=== PATIENT | female | born 1935 | race Caucasian/White ===

== ENCOUNTER 2024-06-14 15:00 | Observation (INO) ==
[2024-06-14] MEDS ORDERED: IOPAMIDOL 100 ML BOTTLE IV ONE (15:01)
[2024-06-14 16:12] LABS: Basophils # (Auto) 0.02 K/mcL (0.00-0.30); Basophils % (Auto) 0.3 % (0.0-2.0); Eosinophils # (Auto) 0.02 K/mcL (0.00-0.70); Eosinophils % (Auto) 0.3 % (0.0-7.0); Hematocrit 38.7 % (34.1-44.9); Hemoglobin 12.2 g/dL (11.2-15.7); Lymphocytes % (Auto) 29.6 % (15.5-49.0); Mean Cell Volume 101.3 fL (80.0-100.0); Mean Corpuscular HGB Conc 31.5 g/dL (31.0-36.0); Mean Platelet Volume 12.7 fL (8.8-12.5); Monocytes # (Auto) 0.51 K/mcL (0.10-0.90); Monocytes % (Auto) 7.2 % (1.0-12.0); Neutrophils % (Auto) 62.5 % (38.0-78.0); Platelet Count 129 K/mcL (140-440); RBC 3.82 M/mcL (3.59-5.38); Red Cell Distribution Width 12.6 % (11.5-14.5); WBC 7.1 K/mcL (4.5-11.0)
[2024-06-14 16:15] LABS: ALT/SGPT 9 U/L (<40); AST/SGOT 30 U/L (<32); Albumin 4.2 gm/dL (3.2-5.2); Albumin/Globulin Ratio 1.3 (1.0-2.3); Alkaline Phosphatase 59 U/L (39-117); Bilirubin,Total 0.3 mg/dL (0.1-1.0); Blood Urea Nitrogen 11 mg/dL (8-23); Calcium 9.8 mg/dL (8.6-10.4); Carbon Dioxide 26 mmol/L (22-30); Chloride 100 mmol/L (96-108); Globulin 3.2 gm/dL (2.2-3.7); Glomerular Filtration Rate 78; Glucose 98 mg/dL (70-105); Potassium 3.7 mmol/L (3.3-5.1); Sodium 138 mmol/L (133-145)
[2024-06-14 16:44] LABS: INR 0.9 (0.9-1.1); Prothrombin Time 12.7 sec (11.9-14.5)
[2024-06-14 16:45] LABS: Appearance,Urine Clear (Clear); Bacteria,Urine 0 /hpf (0); Bilirubin,Urine Negative (Negative); Color,Urine Yellow; Glucose,Urine (UA) Negative (Negative); Ketones,Urine Negative (Negative); Leukocyte Esterase,Urine Negative /uL (Negative); Mucus,Urine Mod /hpf; Nitrate,Urine Negative (Negative); PH,Urine 5.5 (5.0-9.0); Protein,Urine 30 mg/dL (Negative); Urine Blood Negative ery/mcL (Negative); Urine Hyaline Cast 18 /lph (0-2); Urine RBC 0 /hpf (0-3); Urine Squamous Epithelial Cell 1 /hpf (0-4); Urine WBC 2 /hpf (0-4); Urobilinogen,Urine Normal
[2024-06-14] MEDS: ASPIRIN 325 MG ENTERIC COATED TABLET PO ONE (18:19)
[2024-06-14] MEDS: HYDROCODONE/APAP 7.5/325MG TABLET PO ONE (18:35)
[2024-06-14] MEDS: ASPIRIN 81 MG TAB.CHEW CHEWED ONE ×2 (18:36)
[2024-06-14] MEDS: ATORVASTATIN 40 MG TABLET PO ONE (18:43)
[2024-06-14] MEDS ORDERED: ACETAMINOPHEN 160 MG/5 ML ORAL.SOL PO PRN (20:16)
[2024-06-14] MEDS ORDERED: POTASSIUM CHLORIDE 20 MEQ TABLET PO PRN ×2 (20:16)
[2024-06-14] MEDS ORDERED: POLYETHYLENE GLYCOL 3350 17 GM PACKET PO PRN (20:16)
[2024-06-14] MEDS ORDERED: SENNOSIDES 1 TABLET PO PRN (20:16)
[2024-06-14] MEDS ORDERED: POTASSIUM CHLORIDE 40 MEQ in DEXTROSE 5% IN WATER 500 ML IV PRN (20:16)
[2024-06-14] MEDS ORDERED: MAGNESIUM SULFATE 2 GM/50 ML BAG IV PRN (20:16)
[2024-06-14] MEDS ORDERED: ONDANSETRON 4 MG/2 ML VIAL IV PRN (20:16)
[2024-06-14] MEDS ORDERED: METOCLOPRAMIDE 10 MG/2 ML VIAL IV PRN (20:16)
[2024-06-14] MEDS ORDERED: IPRATROPIUM/ALBUTEROL 3 ML AMPUL.NEB NEB PRN (20:16)
[2024-06-14 20:54] LABS: HDL Cholesterol 80 mg/dL (>40); LDL Cholesterol,Calculated 100 mg/dL (<100); Non-HDL Cholesterol 133 mg/dL (<130); Triglycerides 168 mg/dL (<150)
[2024-06-14] MEDS: 0.9 % SODIUM CHLORIDE 1,000 ML IV ONE (21:34)
[2024-06-14] MEDS: ATORVASTATIN 40 MG TABLET PO SCH (21:34)
[2024-06-14] MEDS: DOCUSATE SODIUM 100 MG CAPSULE PO SCH (21:34)
[2024-06-14] MEDS ORDERED: hydrALAZINE 20 MG/ML VIAL IV PRN (21:43)
[2024-06-14] MEDS: METHOCARBAMOL 750 MG TABLET PO SCH (22:04)
[2024-06-14] MEDS: METHOCARBAMOL 750 MG TABLET PO ONE (22:35)
[2024-06-15 06:10] LABS: ALT/SGPT 8 U/L (<40); AST/SGOT 22 U/L (<32); Albumin 3.7 gm/dL (3.2-5.2); Albumin/Globulin Ratio 1.5 (1.0-2.3); Alkaline Phosphatase 49 U/L (39-117); Bilirubin,Direct < 0.2 mg/dL (0-0.3); Bilirubin,Total 0.4 mg/dL (0.1-1.0); Blood Urea Nitrogen 9 mg/dL (8-23); Calcium 9.4 mg/dL (8.6-10.4); Carbon Dioxide 28 mmol/L (22-30); Chloride 103 mmol/L (96-108); Globulin 2.5 gm/dL (2.2-3.7); Glomerular Filtration Rate 82; Glucose 95 mg/dL (70-105); Lactate Dehydrogenase 168 U/L (135-225); Phosphorous 2.9 mg/dL (2.5-4.5); Potassium 3.8 mmol/L (3.3-5.1); Sodium 140 mmol/L (133-145); Triglycerides 69 mg/dL (<150); Uric Acid 3.6 mg/dL (2.5-8.0)
[2024-06-15] MEDS: ASPIRIN 81 MG TAB.CHEW CHEWED SCH (08:07)
[2024-06-15] MEDS: ENOXAPARIN 40 MG/0.4 ML SYRINGE SQ SCH (08:07)
[2024-06-15] MEDS: amLODIPine 5 MG TABLET PO SCH (08:07)
[2024-06-15] MEDS: CLOPIDOGREL 75 MG TABLET PO SCH (08:07)
[2024-06-15] MEDS: LOSARTAN 50 MG TABLET PO SCH ×2 (08:08→09:36)
[2024-06-15] MEDS: LOSARTAN 50 MG TABLET PO ONE (08:45)
[2024-06-15] MEDS: BUPRENORPHINE TOPICAL SCH (12:22)
[2024-06-15] MEDS: LIDOCAINE 4% TOP PATCH TOPICAL SCH (12:41)
[2024-06-15] MEDS: hydrALAZINE 20 MG/ML VIAL IV PRN (17:46)
[2024-06-15] MEDS: HYDROcodone/APAP 5/325MG TABLET PO PRN (20:16)
[2024-06-16] MEDS ORDERED: amLODIPine 5 MG TABLET PO SCH (09:00)
[2024-06-16] MEDS: amLODIPine 5 MG TABLET PO SCH (10:05)
[2024-06-16] MEDS: FLU VACC TS2024-25(65YR UP)/PF 180 MCG/0.5 ML SYRINGE IM ONE (14:07)
== END 2024-06-16 14:25 | disposition home or self-care (01) ==
LOC: ICU 15:00 → ED 15:00 → ICU 20:10 → MEDSUR 06-15 13:37
PROVIDERS: ADMIT Internal Medicine; ATTEND Internal Medicine

== ENCOUNTER 2024-10-10 11:15 | Inpatient (IN) ==
[2024-10-10] MEDS: HYDROcodone/APAP 5/325MG TABLET PO ONE (11:48)
[2024-10-10] MEDS: HYDROmorphone 0.5 MG/0.5 ML SYRINGE IV PRN (11:55)
[2024-10-10 12:26] LABS: Basophils # (Auto) 0.02 K/mcL (0.00-0.30); Basophils % (Auto) 0.4 % (0.0-2.0); Eosinophils # (Auto) 0.03 K/mcL (0.00-0.70); Eosinophils % (Auto) 0.6 % (0.0-7.0); Hemoglobin 11.8 g/dL (11.2-15.7); Lymphocytes # (Auto) 1.44 K/mcL (1.50-4.80); Lymphocytes % (Auto) 28.6 % (15.5-49.0); Mean Corpuscular HGB Conc 31.1 g/dL (31.0-36.0); Mean Platelet Volume 12.2 fL (8.8-12.5); Monocytes # (Auto) 0.42 K/mcL (0.10-0.90); Monocytes % (Auto) 8.3 % (1.0-12.0); Neutrophils % (Auto) 61.7 % (38.0-78.0); Platelet Count 157 K/mcL (140-440); RBC 3.62 M/mcL (3.59-5.38); Red Cell Distribution Width 14.5 % (11.5-14.5)
[2024-10-10 12:36] LABS: ALT/SGPT 10 U/L (<40); AST/SGOT 28 U/L (<32); Albumin 3.7 gm/dL (3.2-5.2); Albumin/Globulin Ratio 1.3 (1.0-2.3); Alkaline Phosphatase 55 U/L (39-117); Bilirubin,Total 0.3 mg/dL (0.1-1.0); Blood Urea Nitrogen 15 mg/dL (8-23); Calcium 9.1 mg/dL (8.6-10.4); Carbon Dioxide 22 mmol/L (22-30); Chloride 101 mmol/L (96-108); Globulin 2.9 gm/dL (2.2-3.7); Glomerular Filtration Rate 78; Glucose 88 mg/dL (70-105); Potassium 3.4 mmol/L (3.3-5.1); Sodium 137 mmol/L (133-145)
[2024-10-10 13:34] LABS: INR 0.9 (0.9-1.1); Prothrombin Time 12.3 sec (11.9-14.5)
[2024-10-10] MEDS ORDERED: ACETAMINOPHEN 325 MG TABLET PO PRN (13:48)
[2024-10-10] MEDS ORDERED: METOCLOPRAMIDE 10 MG/2 ML VIAL IV PRN (13:48)
[2024-10-10] MEDS ORDERED: POTASSIUM CHLORIDE 20 MEQ TABLET PO PRN (13:48)
[2024-10-10] MEDS ORDERED: ONDANSETRON 4 MG/2 ML VIAL IV PRN (13:48)
[2024-10-10] MEDS ORDERED: IPRATROPIUM/ALBUTEROL 3 ML AMPUL.NEB NEB PRN (13:48)
[2024-10-10] MEDS ORDERED: LABETALOL HCL 20 MG/4 ML VIAL IV PRN (13:48)
[2024-10-10] MEDS ORDERED: POTASSIUM CHLORIDE 40 MEQ in DEXTROSE 5% IN WATER 500 ML IV PRN (13:48)
[2024-10-10] MEDS ORDERED: SENNOSIDES 1 TABLET PO PRN (13:48)
[2024-10-10] MEDS: 0.9 % SODIUM CHLORIDE 1,000 ML IV ONE (14:18)
[2024-10-10] MEDS ORDERED: ACETAMINOPHEN 500 MG TABLET PO PRN (14:53)
[2024-10-10] MEDS: morphine 4 MG/ML VIAL IV PRN (15:00)
[2024-10-10 15:44] LABS: Appearance,Urine Clear (Clear); Bilirubin,Urine Negative (Negative); Color,Urine Yellow; Glucose,Urine (UA) Negative (Negative); Ketones,Urine Negative (Negative); Leukocyte Esterase,Urine Negative /uL (Negative); Nitrate,Urine Negative (Negative); Protein,Urine Negative (Negative); Specific Gravity,Urine 1.015 (1.000-1.035); Urine Blood Negative ery/mcL (Negative); Urobilinogen,Urine Normal
[2024-10-10] MEDS: HYDROcodone/APAP 5/325MG TABLET PO PRN (15:51)
[2024-10-10] MEDS: LOSARTAN 50 MG TABLET PO SCH (20:32)
[2024-10-10] MEDS: DOCUSATE SODIUM 100 MG CAPSULE PO SCH (20:32)
[2024-10-10] MEDS: ATORVASTATIN 40 MG TABLET PO SCH (20:32)
[2024-10-10] MEDS: amLODIPine 5 MG TABLET PO SCH (20:32)
[2024-10-11 06:24] LABS: ALT/SGPT 11 U/L (<40); AST/SGOT 21 U/L (<32); Albumin 3.4 gm/dL (3.2-5.2); Albumin/Globulin Ratio 1.3 (1.0-2.3); Alkaline Phosphatase 53 U/L (39-117); Bilirubin,Direct 0.2 mg/dL (<0.3); Bilirubin,Total 0.4 mg/dL (0.1-1.0); Blood Urea Nitrogen 10 mg/dL (8-23); Calcium 8.6 mg/dL (8.6-10.4); Carbon Dioxide 25 mmol/L (22-30); Chloride 102 mmol/L (96-108); Globulin 2.6 gm/dL (2.2-3.7); Glomerular Filtration Rate 87; Glucose 95 mg/dL (70-105); Lactate Dehydrogenase 228 U/L (135-225); Phosphorous 2.7 mg/dL (2.5-4.5); Potassium 3.1 mmol/L (3.3-5.1); Sodium 139 mmol/L (133-145); Triglycerides 72 mg/dL (<150); Uric Acid 2.4 mg/dL (2.5-8.0)
[2024-10-11] MEDS: POTASSIUM CHLORIDE 10 MEQ/100 ML BAG IV SCH (10:37)
[2024-10-11] MEDS: LIDOCAINE 4% TOP PATCH TOPICAL SCH (10:44)
[2024-10-11] MEDS ORDERED: fentaNYL 100 MCG/2 ML VIAL ONE (12:43)
[2024-10-11] MEDS ORDERED: PROPOFOL 200 MG/20 ML VIAL IV ONE (12:43)
[2024-10-11] MEDS ORDERED: GLYCOPYRROLATE 0.2 MG/ML VIAL IV ONE (12:44)
[2024-10-11] MEDS ORDERED: DEXAMETHASONE 10 MG/ML VIAL ONE (12:44)
[2024-10-11] MEDS ORDERED: ONDANSETRON 4 MG/2 ML VIAL ONE (12:44)
[2024-10-11] MEDS ORDERED: ceFAZolin 1 GM VIAL IV SCH (12:45)
[2024-10-11] MEDS ORDERED: ROCURONIUM 10 MG/ML ML IV ONE (12:47)
[2024-10-11] MEDS ORDERED: SUGAMMADEX SODIUM 200 MG/2 ML VIAL IV ONE (12:47)
[2024-10-11] MEDS ORDERED: TRANEXAMIC ACID 1,000 MG/10 ML VIAL ONE (12:47)
[2024-10-11] MEDS: ceFAZolin 2 GM in DEXTROSE 5% IN WATER 50 ML IV SCH (12:49)
[2024-10-11] MEDS ORDERED: PHENYLephrine 1 MG/10 ML SYRINGE (ANEST) ONE (13:13)
[2024-10-11] MEDS ORDERED: METOPROLOL TARTRATE 5 MG/5 ML VIAL IV ONE (13:15)
[2024-10-11] MEDS ORDERED: ROPIVACAINE HCL/PF 30 ML VIAL IJ ONE (13:47)
[2024-10-11] MEDS ORDERED: NALOXONE HCL 0.4 MG/ML VIAL IV PRN (14:13)
[2024-10-11] MEDS ORDERED: LACTATED RINGERS 250 ML IV PRN (14:13)
[2024-10-11] MEDS ORDERED: IPRATROPIUM/ALBUTEROL 3 ML AMPUL.NEB NEB PRN (14:13)
[2024-10-11] MEDS ORDERED: fentaNYL 100 MCG/2 ML VIAL IV PRN (14:13)
[2024-10-11] MEDS ORDERED: diphenhydrAMINE 50 MG/ML VIAL IV PRN (14:13)
[2024-10-11] MEDS ORDERED: MEPERIDINE 25 MG/ML VIAL IV PRN (14:13)
[2024-10-11] MEDS ORDERED: ONDANSETRON 4 MG/2 ML VIAL IV PRN (14:13)
[2024-10-11] MEDS ORDERED: morphine 4 MG/ML VIAL IV PRN (14:30)
[2024-10-11] MEDS ORDERED: FLEETS ADULT 1 DOSE ENEMA PR PRN (14:30)
[2024-10-11] MEDS ORDERED: BISACODYL 10 MG SUPP.RECT PR PRN (14:30)
[2024-10-11] MEDS ORDERED: POLYETHYLENE GLYCOL 3350 17 GM PACKET PO PRN (14:30)
[2024-10-11] MEDS ORDERED: ONDANSETRON 4 MG ODT TABLET SL PRN (14:30)
[2024-10-11] MEDS ORDERED: BENZOCAINE/MENTHOL 1 LOZENGE PO PRN (14:30)
[2024-10-11] MEDS: ACETAMINOPHEN 1,000 MG/100 ML BAG IV ONE (15:28)
[2024-10-11] MEDS: LACTATED RINGERS 1,000 ML IV SCH (15:56)
[2024-10-11] MEDS: 0.9 % SODIUM CHLORIDE 1,000 ML IV SCH (16:04)
[2024-10-11] MEDS: METOPROLOL TARTRATE 5 MG/5 ML VIAL IV PRN (16:37)
[2024-10-11] MEDS: MAGNESIUM SULFATE 2 GM/50 ML BAG IV PRN (19:09)
[2024-10-11] MEDS: POTASSIUM CHLORIDE 20 MEQ TABLET PO PRN (20:18)
[2024-10-11] MEDS: METOPROLOL TARTRATE 25 MG TABLET PO ONE (20:18)
[2024-10-11] MEDS: ceFAZolin 1 GM VIAL IV SCH (21:47)
[2024-10-11] MEDS: DOCUSATE SODIUM 100 MG CAPSULE PO SCH (21:48)
[2024-10-11] MEDS: ASPIRIN 81 MG TAB.CHEW PO SCH (21:48)
[2024-10-11] MEDS: CARBOXYMETHYLCELLULOSE SODIUM 1 EACH DROPER.GEL OP PRN (21:48)
[2024-10-11] MEDS: SENNOSIDES 1 TABLET PO SCH (21:48)
[2024-10-12] MEDS: HYDROcodone/APAP 5/325MG TABLET PO PRN (03:13)
[2024-10-12] MEDS: METHOCARBAMOL 750 MG TABLET PO PRN (04:35)
[2024-10-12 06:04] LABS: Hematocrit 30.6 % (34.1-44.9); Hemoglobin 9.7 g/dL (11.2-15.7)
[2024-10-12 06:40] LABS: ALT/SGPT 12 U/L (<40); AST/SGOT 24 U/L (<32); Albumin 3.1 gm/dL (3.2-5.2); Albumin/Globulin Ratio 1.2 (1.0-2.3); Alkaline Phosphatase 49 U/L (39-117); Bilirubin,Direct < 0.2 mg/dL (0-0.3); Bilirubin,Total 0.3 mg/dL (0.1-1.0); Blood Urea Nitrogen 11 mg/dL (8-23); Calcium 8.4 mg/dL (8.6-10.4); Carbon Dioxide 23 mmol/L (22-30); Chloride 105 mmol/L (96-108); Globulin 2.6 gm/dL (2.2-3.7); Glomerular Filtration Rate 87; Glucose 147 mg/dL (70-105); Lactate Dehydrogenase 221 U/L (135-225); Phosphorous 2.3 mg/dL (2.5-4.5); Potassium 4.6 mmol/L (3.3-5.1); Sodium 135 mmol/L (133-145); Triglycerides 71 mg/dL (<150); Uric Acid 2.4 mg/dL (2.5-8.0)
[2024-10-13] MEDS: POLYETHYLENE GLYCOL 3350 17 GM PACKET PO PRN (05:22)
[2024-10-13] MEDS: MAGNESIUM HYDROXIDE 30 ML ORAL.SUSP PO PRN (05:22)
[2024-10-13 05:48] LABS: Hematocrit 25.9 % (34.1-44.9); Hemoglobin 8.1 g/dL (11.2-15.7)
[2024-10-13 06:16] LABS: ALT/SGPT 7 U/L (<40); AST/SGOT 22 U/L (<32); Albumin 2.9 gm/dL (3.2-5.2); Albumin/Globulin Ratio 1.3 (1.0-2.3); Alkaline Phosphatase 66 U/L (39-117); Bilirubin,Direct < 0.2 mg/dL (0-0.3); Bilirubin,Total 0.2 mg/dL (0.1-1.0); Blood Urea Nitrogen 15 mg/dL (8-23); Calcium 8.4 mg/dL (8.6-10.4); Carbon Dioxide 25 mmol/L (22-30); Chloride 106 mmol/L (96-108); Globulin 2.3 gm/dL (2.2-3.7); Glomerular Filtration Rate 93; Glucose 108 mg/dL (70-105); Lactate Dehydrogenase 208 U/L (135-225); Phosphorous 2.6 mg/dL (2.5-4.5); Potassium 4.5 mmol/L (3.3-5.1); Sodium 139 mmol/L (133-145); Triglycerides 68 mg/dL (<150); Uric Acid 2.1 mg/dL (2.5-8.0)
[2024-10-13 07:35] VITALS: TEMP 98.5; O2SAT 100
== END 2024-10-13 10:58 | DRG 522 ==
LOC: ED 11:15 → MEDSUR 13:37
PROVIDERS: ADMIT Internal Medicine; ATTEND Internal Medicine
PROC: HEMIHIP (2024-10-11 13:04)